=== PATIENT | female | born 1985 ===

== ENCOUNTER 2018-01-21 20:14 | Emergency (ER) | payer MEDICAID ==
--- NOTE | 2018-01-21 21:55 | Emergency Department Record ---
History of Present Illness - General Chief complaint: Pain Stated complaint: RT WRIST PAIN/SWELLING Time Seen by Provider: 01/21/18 21:23 Source: Patient Mode of Arrival: Ambulatory Limitations: No limitations - History of Present Illness Initial comments: The patient is here for R wrist pain. She fell 10 days ago onto the R wrist and it has been painful since. There is pain with ROM. She has not seen a doctor for it until now. MD Complaint: Extremity pain Onset/Timin -: Days(s) Location: Right, Arm, Hand Severity scale (1-10): 8 Quality: Aching, Sharp, Stabbing Improves with: Rest Worsens with: Palpation - Related Data Home Medications Medication Instructions Recorded Confirmed Last Taken Lisinopril 10 mg PO DAILY 01/21/18 01/21/18 Unknown Norethindrone [Sharobel] 1 tab PO DAILY 01/21/18 01/21/18 Unknown Sertraline HCl [Zoloft] 100 mg PO DAILY 01/21/18 01/21/18 Unknown Allergies Allergy/AdvReac Type Severity Reaction Status Date / Time codeine Allergy Severe ANAPHYLAXIS Verified 01/21/18 21:03 Travel Screening - Travel/Exposure Within Last 30 Days Have you traveled within the last 30 days?: No - Travel Symptoms Symptom Screening: None Review of Systems Constitutional: Denies: Chills, Fever Past Medical History - SOCIAL HISTORY Smoking Status: Never smoker - RESPIRATORY Hx Respiratory Disorders: No - CARDIOVASCULAR Hx Cardio Disorders: Yes Hx Hypertension: Yes - NEURO Hx Neuro Disorders: No - GI Hx GI Disorders: No - Hx Genitourinary Disorders: Yes Comment:: Preeclampsia x2 pregnancies; Polycystic ovaries - ENDOCRINE Hx Endocrine Disorders: Yes Hx Diabetes: Yes Hx Thyroid Disease: Yes - MUSCULOSKELETAL Hx Musculoskeletal Disorders: Yes - PSYCH Hx Psych Problems: Yes Hx Anxiety: Yes (Panic attacks) - HEMATOLOGY/ONCOLOGY Hx Hematology/Oncology Disorders: No Family Medical History Any Significant Family History?: Yes Hx Cancer: Mother Hx Diabetes: Father Hx Heart Disease: Grandparents Hx Resp Disorders: Grandparents Hx Seizures: Brother/Sister Physical Exam - General General Appearance: Alert, Cooperative, No acute distress - Head Head exam: Atraumatic, Normocephalic - Eye Eye exam: Normal appearance, PERRL - Extremities Extremities exam: Normal inspection (There is no swelling, bruising, or edema appreciated.), Full ROM, Normal capillary refill, Tenderness (There is dorsal R wrist tenderness but full ROM with mild pain. There is no specific snuff box tenderness.) Course Vital Signs 01/21/18 21:08 Temperature 98.6 F Pulse Rate [ 72 Pulse Ox Probe] Respiratory 20 Rate Blood Pressure 140/90 [Left Arm] Pulse Ox 100 - Reevaluation(s) Reevaluation #1: I explained to the patient the xrays do appear normal. She is to use the splint for a week and take OTC pain medicines. She is to see her PCP if not better in 1 week. 01/21/18 22:21 Medical Decision Making - Data Complexity MDM Data: X-Ray Ordered and/or Reviewed - Radiology Data Radiology results: Report reviewed (R Wrist: Neg per Rad.), Image reviewed (R Wrist: Neg.) Disposition Disposition: Discharge Clinical Impression: Sprain of wrist Qualifiers: Encounter type: initial encounter Laterality: right Qualified Code(s): S63.501A - Unspecified sprain of right wrist, initial encounter Disposition: Home, Self-Care Condition: (2) Stable Instructions: Wrist Sprain (ED) Additional Instructions: Please wear the splint for 7 days and take OTC pain medicines. Please see your family doctor next week if not better. Forms: Patient Portal Access Time of Disposition: 22:23 Quality - Quality Measures Quality Measures: N/A - Blood Pressure Screening View Details: Yes Does Patient Have Any of the Following: No Blood Pressure Classification: Hypertensive Reading Systolic Measurement: 140 Diastolic Measurement: 90 Screening for High Blood Pressure: < First Hypertensive BP, F/U Documented > [ G8950] First Hypertensive Follow-up Interventions: Referral to alternative/primary care provider.
--- NOTE | 2018-01-23 13:44 | RADIOLOGY REPORT ---
EXAM: RIGHT WRIST HISTORY: FELL ABOUT ONE AND A HALF WEEKS AGO AND HURT RIGHT WRIST, NOW HAVING MORE PAIN. TECHNIQUE: Four views of the right wrist were obtained. Comparison: None. Encounter: Initial. FINDINGS: No definite fracture of the right wrist identified. No dislocation is seen. There is probably some mild soft tissue swelling particularly along the radial aspect of the wrist. If wrist symptoms persist, a follow-up MRI of the right wrist would be suggested for further evaluation if not contraindicated. IMPRESSION: NO FRACTURE OF THE RIGHT WRIST IDENTIFIED. JOB NUMBER: [id number] MTDD
== END 2018-01-21 22:30 | disposition home or self-care (01) ==
LOC: ER 20:14
DX: S63.501A Unspecified sprain of right wrist, initial encounter (principal); W19.XXXA Unspecified fall, initial encounter; I10 Essential (primary) hypertension; E11.9 Type 2 diabetes mellitus without complications
CPT/HCPCS: 99283

== ENCOUNTER 2018-10-13 15:25 | Emergency (ER) | payer MEDICAID ==
[2018-10-13] MEDS ORDERED: KETOROLAC 30 MG/ML VIAL IVP ONE (16:19)
--- NOTE | 2018-10-13 16:23 | Emergency Department Record ---
History of Present Illness - General Chief complaint: Female Urogenital Problem Stated complaint: LOWER BACK AND ABDOMINAL PAIN Time Seen by Provider: 10/13/18 15:56 Source: Patient Mode of Arrival: Ambulatory Limitations: No limitations - History of Present Illness Initial comments: pt c/o lower abd pain that is constant since this am she also has back pain which is chronic but worse today Complaint: Pelvic pain Onset/Timin -: Hour(s) Location: Suprapubic, Other Severity: Moderate Severity scale (1-10): 9 Quality: Sharp Consistency: Constant Improves with: None Worsens with: Menstrual period, Movement Patient : No Associated Symptoms: Denies other symptoms - Related Data Sexually active: No Previous Rx's Medication Instructions Recorded Cyclobenzaprine HCl [Flexeril] 10 mg PO TID #14 tablet 10/13/18 Hydrocodone/Acetaminophen [[place] 1 each PO Q8HR #5 tablet 10/13/18 5-325 Tablet] Ibuprofen [Motrin 600Mg] 600 mg PO Q6H #20 tablet 10/13/18 Allergies Allergy/AdvReac Type Severity Reaction Status Date / Time codeine Allergy Severe ANAPHYLAXIS Verified 10/13/18 15:40 Travel Screening - Travel/Exposure Within Last 30 Days Have you traveled within the last 30 days?: No - Travel/Exposure Within Last Year Have you traveled outside the [place] in the last year?: No - Additonal Travel Details Have you been exposed to anyone with a communicable illness?: No - Travel Symptoms Symptom Screening: None Review of Systems Reviewed: No additional complaints except as noted below Constitutional: Reports: As per HPI. Denies: Chills, Fever, Malaise, Night sweats, Weakness, Weight change Eyes: Reports: As per HPI. Denies: Eye discharge, Eye pain, Photophobia, Vision change ENT: Reports: As per HPI. Denies: Congestion, Dental pain, Ear pain, Epistaxis, Hearing loss, Throat pain Respiratory: Reports: As per HPI. Denies: Cough, Dyspnea, Hemoptysis, Stridor, Wheezes Cardiovascular: Reports: As per HPI. Denies: Arrhythmia, Chest pain, Dyspnea on exertion, Edema, Murmurs, Orthopnea, Palpitations, Paroxysmal nocturnal dyspnea, Rheumatic Fever, Syncope Endocrine: Reports: As per HPI. Denies: Fatigue, Heat or cold intolerance, Polydipsia, Polyuria Gastrointestinal: Reports: As per HPI. Denies: Abdominal pain, Constipation, Diarrhea, Hematemesis, Hematochezia, Melena, Nausea, Vomiting Genitourinary: Reports: As per HPI. Denies: Abnormal menses, Discharge, Dyspareunia, Dysuria, Frequency, Hematuria, Incontinence, Retention, Urgency Musculoskeletal: Reports: As per HPI. Denies: Arthralgia, Back pain, Gout, Joint swelling, Myalgia, Neck pain Skin: Reports: As per HPI. Denies: Bruising, Change in color, Change in hair/nails, Lesions, Pruritus, Rash Neurological: Reports: As per HPI. Denies: Abnormal gait, Confusion, Headache, Numbness, Paresthesias, Seizure, Tingling, Tremors, Vertigo, Weakness Psychiatric: Reports: As per HPI. Denies: Anxiety, Auditory hallucinations, Depression, Homicidal thoughts, Suicidal thoughts, Visual hallucinations Hematological/Lymphatic: Reports: As per HPI. Denies: Anemia, Blood Clots, Easy bleeding, Easy bruising, Swollen glands Past Medical History - SOCIAL HISTORY Smoking Status: Never smoker Alcohol Use: None Drug Use: None - RESPIRATORY Hx Respiratory Disorders: No - CARDIOVASCULAR Hx Cardio Disorders: Yes Hx Hypertension: Yes - NEURO Hx Neuro Disorders: No - GI Hx GI Disorders: No - Hx Genitourinary Disorders: Yes Comment:: Preeclampsia x2 pregnancies; Polycystic ovaries - ENDOCRINE Hx Endocrine Disorders: Yes Hx Diabetes: Yes Hx Thyroid Disease: Yes - MUSCULOSKELETAL Hx Musculoskeletal Disorders: Yes - PSYCH Hx Psych Problems: Yes Hx Anxiety: Yes (Panic attacks) - HEMATOLOGY/ONCOLOGY Hx Hematology/Oncology Disorders: No Family Medical History Any Significant Family History?: Yes Hx Cancer: Mother Hx Diabetes: Father Hx Heart Disease: Grandparents Hx Resp Disorders: Grandparents Hx Seizures: Brother/Sister Physical Exam - General General Appearance: Alert, Oriented x3, Cooperative, Mild distress - Head Head exam: Normal inspection - Eye Eye exam: Normal appearance, PERRL, EOMI Pupils: Normal accommodation - ENT ENT exam: Normal exam, Mucous membranes moist, Normal external ear exam, Normal orophraynx Ear exam: Normal external inspection. negative: External canal tenderness Nasal Exam: Normal inspection. negative: Discharge, Sinus tenderness Mouth exam: Normal external inspection, Tongue normal Teeth exam: Normal inspection. negative: Dental caries Throat exam: Normal inspection. negative: Tonsillar erythema, Tonsillar exudate - Neck Neck exam: Normal inspection, Full ROM. negative: Tenderness - Respiratory Respiratory exam: Normal lung sounds bilaterally. negative: Respiratory distress - Cardiovascular Cardiovascular Exam: Regular rate, Normal rhythm, Normal heart sounds - GI/Abdominal GI/Abdominal exam: Soft, Normal bowel sounds, Tenderness (suprapubic and lower abd) - Rectal Rectal exam: Deferred - exam: Deferred - Extremities Extremities exam: Normal inspection, Full ROM, Normal capillary refill. negative: Tenderness - Back Back exam: Reports: Normal inspection, Full ROM. Denies: Muscle spasm, Rash noted, Tenderness - Neurological Neurological exam: Alert, Normal gait, Oriented X3, Reflexes normal - Psychiatric Psychiatric exam: Normal affect, Normal mood - Skin Skin exam: Dry, Intact, Normal color, Warm Course Vital Signs 10/13/18 15:41 Temperature 99.1 F Pulse Rate 94 H Respiratory 18 Rate Blood Pressure 138/96 Pulse Ox 99 Medical Decision Making - Lab Data Result diagrams: 10/13/18 16:15 10/13/18 16:15 Disposition Disposition: Discharge Clinical Impression: Radiculopathy Qualifiers: Spinal region: lumbar Qualified Code(s): M54.16 - Radiculopathy, lumbar region Abdominal pain Qualifiers: Abdominal location: lower abdomen, unspecified Qualified Code(s): R10.30 - Lower abdominal pain, unspecified Disposition: Home, Self-Care Condition: (1) Good Instructions: Abdominal Pain (ED), Lumbar Radiculopathy (ED) Additional Instructions: follow up with family doctor . return sooner if worse. if pain continues be rechecked tomorrow Prescriptions: Hydrocodone/Acetaminophen [[place] 5-325 Tablet] 1 each PO Q8HR #5 tablet Cyclobenzaprine HCl [Flexeril] 10 mg PO TID #14 tablet Ibuprofen [Motrin 600Mg] 600 mg PO Q6H #20 tablet Forms: Patient Portal Access Quality - Quality Measures Quality Measures: N/A - Blood Pressure Screening Does Patient Have Any of the Following: No Blood Pressure Classification: Hypertensive Reading Systolic Measurement: 138 Diastolic Measurement: 96 Screening for High Blood Pressure: < Pre-Hypertensive BP, F/U Documented > [G8950] Pre-Hypertensive Follow-up Interventions: Follow-up with rescreen every year.
[2018-10-13 16:36] LABS: ABSOLUTE NEUTROPHIL COUNT 4.18; BASO % 0.3 % (0-6); GRAN % 57.3 % (47-80); HEMATOCRIT 41.5 % (35.0-47.0); LYMPH % 32.9 % (16-45); MEAN CELL VOLUME 84.7 fl (81-97); MEAN CORPUSCULAR HEMOGLOBIN 28.6 pg (27-33); MEAN CORPUSCULAR HGB CONC 33.7 g/dl (32-36); MEAN PLATELET VOLUME 9.2 fl (7.4-10.4); MONO % 8.5 % (0-9); PLATELET COUNT 347 K/uL (130-400); RED CELL DISTRIBUTION WIDTH 13.4 % (11.5-14.5); WHITE BLOOD COUNT W/O DIFF 7.3 K/uL (4.2-12.2)
[2018-10-13 16:37] LABS: URINE APPEARANCE CLEAR; URINE BILIRUBIN NEGATIVE (NEGATIVE); URINE BLOOD LARGE (NEGATIVE); URINE COLOR YELLOW; URINE KETONE NEGATIVE (NEGATIVE); URINE LEUKOCYTE ESTERASE NEGATIVE (NEGATIVE); URINE NITRITE NEGATIVE (NEGATIVE); URINE UROBILINOGEN 0.2 E.U./dL (0.20 - 1.00)
[2018-10-13 16:44] LABS: HCG,QUALITATIVE URINE NEGATIVE (NEGATIVE); URINE MUCUS LIGHT; URINE RBC 21 - 35 (NONE SEEN); URINE WBC NONE SEEN (0-2/hpf)
[2018-10-13 16:48] LABS: BLOOD UREA NITROGEN 11 mg/dL (6-20); CREATININE 0.5 mg/dL (0.5-0.9); EST GLOMERULAR FILTRATION RATE > 60 mL/min
[2018-10-13 16:49] LABS: TOTAL PROTEIN 7.1 g/dL (6.6-8.7)
[2018-10-13 16:51] LABS: GLUCOSE,RANDOM 165 mg/dL (74-109)
[2018-10-13 16:54] LABS: ALB/GLOB RATIO 2.1 (1.1-1.8); ALBUMIN 4.8 g/dL (4.0-5.0); ALKALINE PHOSPHATASE 54 U/L (35-104); ALT/SGPT 27 U/L (<33); AST/SGOT 19 U/L (10.0-35.0)
[2018-10-13] MEDS ORDERED: ORPHENADRINE CITRATE 60MG/2ML VIAL IM ONE (17:51)
--- NOTE | 2018-10-14 13:15 | CT SCAN REPORT ---
EXAM: CT OF THE ABDOMEN AND PELVIS WITHOUT CONTRAST HISTORY: LOW ABDOMINAL PAIN. TECHNIQUE: Standard CT imaging of the abdomen and pelvis without contrast was obtained. Comparison: None. FINDINGS: The lung bases are clear. The liver is diffusely hypodense suggesting fatty infiltration. The gallbladder has been resected. No peripancreatic fat stranding. The spleen is normal in size. There is a 1.4 cm left adrenal nodule with density of less than 10 Hounsfield units compatible with an adenoma. The right adrenal gland appears normal. There is no nephrolithiasis or hydronephrosis in the kidneys. No bowel dilatation. The bladder is unremarkable. The colon and appendix appear normal. No enlarged retroperitoneal or mesenteric adenopathy. [place] hepatis lung nodes are upper limits of normal measuring 10 mm in short axis diameter. No free fluid or free air is seen. The bones are unremarkable. Moderate degenerative disk disease at L4-L5 and L5-S1 with neural foraminal stenosis that is most severe at L5-S1 bilaterally. IMPRESSION: 1. NEGATIVE NONCONTRAST CT FOR ACUTE ABNORMALITY IN THE ABDOMEN OR PELVIS. 2. HEPATIC STEATOSIS. 3. ADVANCED DEGENERATIVE CHANGES IN THE LOWER LUMBAR SPINE. JOB NUMBER: [id number] [facility]
== END 2018-10-13 18:34 | disposition home or self-care (01) ==
LOC: ER 15:25
DX: M54.16 Radiculopathy, lumbar region (principal); R10.30 Lower abdominal pain, unspecified; R10.2 Pelvic and perineal pain; I10 Essential (primary) hypertension; E11.9 Type 2 diabetes mellitus without complications
CPT/HCPCS: 74176; 80053; 81001; 81025; 85025; 96372; 96374; 99284; J1885; J2360